=== PATIENT | male | born 2000 | race Caucasian/White ===

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

== ENCOUNTER 2022-02-05 16:42 | Emergency (ER) | payer OTHER ==
[~2022-02-05] VITALS: Ht 162.6 cm; Wt 86.2 kg
[2022-02-05 17:04] VITALS: BP_SYST 135
--- NOTE | 2022-02-05 17:04 | NUR ---
PT TRIAGED AND PLACED IN ED LOBBY FOR AVAILABLE BED IN MAIN ED, MADE AWARE OF MSE NEEDS
--- NOTE | 2022-02-05 17:05 | NUR ---
PT CAME IN FROM HOME C/O RIGHT ELBOW PAIN AFTER FALLING FROM SKATEBOARD AND HEARING A "TEAR" FROM ELBOW, PT ARRIVES WITH COLD PACKS, NO SKIN TEARING OR BLEEDING UPON ARRIVAL
[2022-02-05] MEDS ORDERED: IBUP-1969 PO (19:02)
[2022-02-05] MEDS ORDERED: TRAM50TA PO (19:03)
[2022-02-05 20:18] VITALS: BP_SYST 117
--- NOTE | 2022-02-05 20:19 | NUR ---
Patient given written and verbal discharge instructions and verbalizes understanding. ER MD discussed with patient the results and treatment provided. Patient in stable condition. ID arm band removed. IV catheter removed intact and dressing applied, no active bleeding. Rx of PAIN MEDICATION given. Patient educated on pain management and to follow up with PMD. Pain Scale . Opportunity for questions provided and answered. Medication side effect fact sheet provided.
== END 2022-02-05 20:18 | disposition home or self-care (01) ==
LOC: SED 16:42
DX: S42.401A Unspecified fracture of lower end of right humerus, initial encounter for closed fracture (principal); V00.131A Fall from skateboard, initial encounter; Y93.51 Activity, roller skating (inline) and skateboarding; Y92.89 Other specified places as the place of occurrence of the external cause; Y99.8 Other external cause status
CPT/HCPCS: 99283